=== PATIENT | female | born 1960 | race Caucasian/White ===

== ENCOUNTER 2020-12-22 15:14 | Observation (INO) ==
[2020-12-22 15:40] LABS: Basophils % 0.4 % (0.0-0.8); Eosinophils # 0.1 10*3/uL (0.0-0.87); Eosinophils % 1.4 % (0.00-10.9); Hematocrit 42.4 VOL% (35.7-47.0); Hemoglobin 13.8 GM/DL (12.0-16.0); Immature Granulocytes % 0.2 %; Immature Granulocytes Absolute 0.02 #; Lymphocytes # 3.8 10*3/uL (1.4-4.0); Lymphocytes % 36.7 % (21.3-54.2); Mean Corpuscular HGB Conc 32.5 GM/DL (32-36); Mean Corpuscular Volume 92.8 FL (87-102); Mean Platelet Volume 9.1 FL (9.6-12.0); Monocytes % 7.7 % (1.7-12.7); Neutrophils % 53.6 % (38.7-73.9); Platelet Count 318 T/CUMM (130-400); Red Blood Count 4.57 MC/CUMM (3.8-5.5); Red Cell Distribution Width 12.6 % (9.3-17.3); White Blood Count 10.2 T/CUMM (4-12)
[2020-12-22 16:03] LABS: Albumin 3.2 G/DL (3.4-5.0); Bilirubin,Total 0.4 MG/DL (0.2-1.0); Calcium 9.3 MG/DL (8.5-10.1); Osmolality,Calculated 272.2 MOS/KG (273-304); Potassium 4.2 MMOL/L (3.5-5.1); Total Protein 6.6 G/DL (6.4-8.2)
[2020-12-22] MEDS ORDERED: DEXTROSE 50% 25 GM/50 ML VIAL IV PRN (17:12)
[2020-12-22] MEDS ORDERED: hydrALAZINE 20 MG/1 ML VIAL IV PRN (17:12)
[2020-12-22] MEDS ORDERED: ONDANSETRON 4 MG/2 ML VIAL IV PRN (17:12)
[2020-12-22] MEDS ORDERED: GLUCAGON 1 MG VIAL IM PRN (17:12)
[2020-12-22] MEDS ORDERED: MORPHINE 4 MG/1 ML VIAL IV PRN (17:12)
[2020-12-22] MEDS ORDERED: ACETAMINOPHEN 325 MG TABLET PO PRN (17:12)
[2020-12-22] MEDS ORDERED: ENOXAPARIN 40 MG/0.4 ML SYRINGE SUBCUT SCH (17:30)
[2020-12-22] MEDS: ASPIRIN CHEW 81 MG TABLET PO SCH (17:33)
[2020-12-22 18:07] VITALS: BP 135/70
[2020-12-22] MEDS: SODIUM CHLORIDE 0.9% 1,000 ML IV SCH (18:30)
[2020-12-22] MEDS ORDERED: PHENAZOPYRIDINE 95 MG TABLET PO PRN (20:09)
[2020-12-22] MEDS: INSULIN LISPRO 100 UNIT/ML SUBCUT SCH (20:15)
[2020-12-22] MEDS ORDERED: LACTULOSE 20 GM/30 ML UDCUP PO PRN (20:15)
[2020-12-22] MEDS: DOCUSATE SODIUM 100 MG CAPSULE PO SCH (20:18)
[2020-12-22] MEDS: levETIRAcetam 500 MG TABLET PO SCH (20:18)
[2020-12-22] MEDS ORDERED: ATORVASTATIN 40 MG TABLET PO SCH (21:00)
[2020-12-23 03:28] LABS: Bilirubin,Urine Negative (Negative); Blood, Urine Small mg/dL (Negative); Glucose,Urine (UA) 150 mg/dL (Negative); Hyaline Casts,Urine 1 /LPF (0-3); Ketones,Urine Negative (Negative); Mucus,Urine Occasional /LPF (Occasional); Nitrite,Urine Positive (Negative); Protein,Urine Negative; RBC,Urine 60 /HPF (0-4); Squamous Epithelial Cell,Urine Occasional /HPF (0-10); Urine Appearance CLEAR (Clear); Urine Color Amber (Yellow); Urine Specific Gravity 1.008 (1.001-1.035)
[2020-12-23 04:39] LABS: Basophils # 0.1 10*3/uL (0.0-0.2); Eosinophils # 0.2 10*3/uL (0.0-0.87); Eosinophils % 2.5 % (0.00-10.9); Hematocrit 41.5 VOL% (35.7-47.0); Hemoglobin 13.3 GM/DL (12.0-16.0); Immature Granulocytes % 0.1 %; Immature Granulocytes Absolute 0.01 #; Lymphocytes # 2.9 10*3/uL (1.4-4.0); Lymphocytes % 41.5 % (21.3-54.2); Mean Corpuscular Volume 94.1 FL (87-102); Mean Platelet Volume 9.2 FL (9.6-12.0); Monocytes % 8.7 % (1.7-12.7); Neutrophils % 46.2 % (38.7-73.9); Red Blood Count 4.41 MC/CUMM (3.8-5.5); Red Cell Distribution Width 12.5 % (9.3-17.3)
[2020-12-23 04:54] LABS: Platelet Count 249 T/CUMM (130-400); White Blood Count 6.9 T/CUMM (4-12)
[2020-12-23 05:07] LABS: Calcium 8.7 MG/DL (8.5-10.1); Osmolality,Calculated 276.7 MOS/KG (273-304); Potassium 3.9 MMOL/L (3.5-5.1); Risk Ratio 4.14; VLDL Cholesterol 39.6 MG/DL
[2020-12-23] MEDS: ALBUTEROL/IPRATROPIUM 3 ML NEB RESP TX SCH ×2 (07:07→13:41)
[2020-12-23] MEDS ORDERED: MAGNESIUM SULF RIDER 4 GM/100 ML PREMIX IV PRN ×2 (07:24→07:35)
[2020-12-23] MEDS ORDERED: MAGNESIUM SULF RIDER 2 GM/50 ML PREMIX IV PRN ×2 (07:24→07:35)
[2020-12-23] MEDS: INSULIN LISPRO 100 UNIT/ML SUBCUT SCH ×2 (07:43→13:30)
[2020-12-23] MEDS: SODIUM CHLORIDE 0.9% 1,000 ML IV SCH (08:23)
[2020-12-23] MEDS ORDERED: NICOTINE 21 MG/24 HR PATCH TRANSDERM SCH (09:00)
[2020-12-23] MEDS ORDERED: EZETIMIBE 10 MG TABLET PO SCH (09:00)
[2020-12-23] MEDS ORDERED: VENLAFAXINE XR 75 MG CAPSULE PO SCH (09:00)
[2020-12-23] MEDS ORDERED: CLOPIDOGREL 75 MG TABLET PO SCH (09:00)
[2020-12-23] MEDS ORDERED: PANTOPRAZOLE 40 MG TABLET PO SCH (09:00)
[2020-12-23] MEDS ORDERED: NEBIVOLOL 5 MG TABLET PO SCH (09:00)
[2020-12-23] MEDS ORDERED: ARIPiprazole 2 MG TABLET PO SCH (09:00)
[2020-12-23] MEDS: ASPIRIN CHEW 81 MG TABLET PO SCH (09:23)
[2020-12-23] MEDS: levETIRAcetam 500 MG TABLET PO SCH (09:23)
[2020-12-23] MEDS: DOCUSATE SODIUM 100 MG CAPSULE PO SCH (09:23)
[2020-12-23] MEDS ORDERED: LEVOFLOXACIN 500 MG TABLET PO SCH (11:30)
== END 2020-12-23 14:30 | disposition home health service (06) ==
LOC: EDBD → EDUNIT# → N.ED 15:14 → N.EDINP 15:14 → SUATTDRO 17:12 → N.CC 18:24
PROVIDERS: ADMIT Internal Medicine; ATTEND Family Medicine

== ENCOUNTER 2021-01-14 16:56 | Inpatient (IN) ==
[2021-01-14 17:59] LABS: Basophils % 0.5 % (0.0-0.8); Eosinophils # 0.1 10*3/uL (0.0-0.87); Eosinophils % 1.6 % (0.00-10.9); Hematocrit 38.6 VOL% (35.7-47.0); Hemoglobin 12.7 GM/DL (12.0-16.0); Immature Granulocytes % 0.4 %; Immature Granulocytes Absolute 0.03 #; Lymphocytes # 2.7 10*3/uL (1.4-4.0); Lymphocytes % 35.4 % (21.3-54.2); Mean Corpuscular HGB Conc 32.9 GM/DL (32-36); Mean Corpuscular Volume 94.1 FL (87-102); Mean Platelet Volume 8.9 FL (9.6-12.0); Monocytes % 8.8 % (1.7-12.7); Neutrophils % 53.3 % (38.7-73.9); Platelet Count 261 T/CUMM (130-400); Red Cell Distribution Width 12.8 % (9.3-17.3); White Blood Count 7.7 T/CUMM (4-12)
[2021-01-14 18:15] LABS: Albumin 3.4 G/DL (3.4-5.0); Bilirubin,Total 0.4 MG/DL (0.20-1.00); Calcium 9.4 MG/DL (8.5-10.1); Potassium 3.5 MMOL/L (3.5-5.1); Total Protein 6.7 G/DL (6.4-8.2)
[2021-01-14 18:29] LABS: Bilirubin,Urine Negative (Negative); Blood, Urine Small mg/dL (Negative); Glucose,Urine (UA) >=500 mg/dL (Negative); Ketones,Urine Negative (Negative); Mucus,Urine Many /LPF (Occasional); Nitrite,Urine Negative (Negative); Protein,Urine Negative; RBC,Urine 122 /HPF (0-4); Urine Appearance CLOUDY (Clear); Urine Color Yellow (Yellow); Urine Specific Gravity 1.016 (1.001-1.035); Urine Urobilinogen < 2.0 EU/DL (0.2-1.0)
[2021-01-14] MEDS ORDERED: MEROPENEM 500 MG in SODIUM CHLORIDE 0.9% 100 ML IV ONE (19:23)
[2021-01-14] MEDS ORDERED: ONDANSETRON 4 MG/2 ML VIAL IV PRN (20:31)
[2021-01-14] MEDS ORDERED: GLUCAGON 1 MG VIAL IM PRN ×2 (20:31)
[2021-01-14] MEDS ORDERED: DEXTROSE 50% 25 GM/50 ML VIAL IV PRN ×2 (20:31)
[2021-01-14] MEDS ORDERED: ACETAMINOPHEN 325 MG TABLET PO PRN (20:31)
[2021-01-14 20:41] LABS: Barbiturates Screen,Urine Negative (Negative); Benzodiazepines Screen,Urine Negative (Negative); Cannabinoid Screen,Urine Negative (Negative); Opiate Screen,Urine Negative (Negative); Phencyclidine Screen,Urine Negative (Negative)
[2021-01-14] MEDS ORDERED: LEVOFLOXACIN INJ 750 MG/150 ML PREMIX IV SCH (21:00)
[2021-01-14] MEDS ORDERED: BENZONATATE 100 MG CAPSULE PO PRN (21:14)
[2021-01-14] MEDS ORDERED: PHENAZOPYRIDINE 95 MG TABLET PO PRN (21:14)
[2021-01-14] MEDS: INSULIN LISPRO 100 UNIT/ML SUBCUT SCH (22:06)
[2021-01-14] MEDS: levETIRAcetam 500 MG TABLET PO SCH (22:07)
[2021-01-14] MEDS: ENOXAPARIN 40 MG/0.4 ML SYRINGE SUBCUT SCH (22:07)
[2021-01-15] MEDS: LACTATED RINGERS 1,000 ML IV SCH ×2 (00:25→09:16)
[2021-01-15] MEDS: ALBUTEROL/IPRATROPIUM 3 ML NEB RESP TX SCH ×4 (00:54→20:35)
[2021-01-15 05:45] LABS: Basophils % 0.3 % (0.0-0.8); Eosinophils # 0.1 10*3/uL (0.0-0.87); Eosinophils % 0.7 % (0.00-10.9); Hematocrit 36.3 VOL% (35.7-47.0); Hemoglobin 11.8 GM/DL (12.0-16.0); Immature Granulocytes % 0.2 %; Immature Granulocytes Absolute 0.02 #; Lymphocytes # 1.7 10*3/uL (1.4-4.0); Mean Corpuscular HGB Conc 32.5 GM/DL (32-36); Mean Corpuscular Volume 95.3 FL (87-102); Mean Platelet Volume 9.4 FL (9.6-12.0); Monocytes % 7.6 % (1.7-12.7); Neutrophils % 71.2 % (38.7-73.9); Platelet Count 243 T/CUMM (130-400); Red Blood Count 3.81 MC/CUMM (3.8-5.5); Red Cell Distribution Width 12.7 % (9.3-17.3); White Blood Count 8.7 T/CUMM (4-12)
[2021-01-15 06:09] LABS: Calcium 9.4 MG/DL (8.5-10.1); Osmolality,Calculated 280.5 MOS/KG (273-304); Potassium 3.4 MMOL/L (3.5-5.1); Risk Ratio 2.84
[2021-01-15] MEDS: INSULIN LISPRO 100 UNIT/ML SUBCUT SCH ×4 (08:00→21:24)
[2021-01-15] MEDS: ATORVASTATIN 40 MG TABLET PO SCH (09:03)
[2021-01-15] MEDS: levETIRAcetam 500 MG TABLET PO SCH ×2 (09:03→21:23)
[2021-01-15] MEDS: ASPIRIN CHEW 81 MG TABLET PO SCH (09:03)
[2021-01-15] MEDS: PANTOPRAZOLE 40 MG TABLET PO SCH (09:03)
[2021-01-15] MEDS: EZETIMIBE 10 MG TABLET PO SCH (09:03)
[2021-01-15] MEDS: VENLAFAXINE XR 75 MG CAPSULE PO SCH (09:03)
[2021-01-15] MEDS: NEBIVOLOL 5 MG TABLET PO SCH (09:04)
[2021-01-15] MEDS: cefTRIAXone 1,000 MG in SODIUM CHLORIDE 0.9% 100 ML IV SCH (13:11)
[2021-01-15] MEDS: ARIPiprazole 2 MG TABLET PO SCH (13:15)
[2021-01-15] MEDS: BACLOFEN 20 MG TABLET PO SCH (21:23)
[2021-01-15] MEDS: ENOXAPARIN 40 MG/0.4 ML SYRINGE SUBCUT SCH (21:24)
[2021-01-16] MEDS: LACTATED RINGERS 1,000 ML IV SCH ×2 (00:21→18:47)
[2021-01-16] MEDS: ALBUTEROL/IPRATROPIUM 3 ML NEB RESP TX SCH ×4 (00:22→19:35)
[2021-01-16 05:43] LABS: Basophils % 0.3 % (0.0-0.8); Eosinophils # 0.1 10*3/uL (0.0-0.87); Eosinophils % 1.8 % (0.00-10.9); Hematocrit 32.3 VOL% (35.7-47.0); Hemoglobin 10.9 GM/DL (12.0-16.0); Immature Granulocytes % 0.3 %; Immature Granulocytes Absolute 0.02 #; Mean Corpuscular HGB Conc 33.7 GM/DL (32-36); Mean Corpuscular Volume 94.7 FL (87-102); Mean Platelet Volume 8.9 FL (9.6-12.0); Monocytes % 6.3 % (1.7-12.7); Neutrophils % 65.3 % (38.7-73.9); Platelet Count 192 T/CUMM (130-400); Red Blood Count 3.41 MC/CUMM (3.8-5.5); Red Cell Distribution Width 12.9 % (9.3-17.3); White Blood Count 7.6 T/CUMM (4-12)
[2021-01-16 06:11] LABS: Calcium 8.5 MG/DL (8.5-10.1); Osmolality,Calculated 283.1 MOS/KG (273-304); Potassium 3.3 MMOL/L (3.5-5.1); Thyroid Stimulating Hormone 1.36 uIU/ml (0.358-3.74)
[2021-01-16] MEDS: INSULIN LISPRO 100 UNIT/ML SUBCUT SCH ×4 (07:06→21:05)
[2021-01-16] MEDS ORDERED: CLOPIDOGREL 75 MG TABLET PO SCH (09:00)
[2021-01-16] MEDS: VENLAFAXINE XR 75 MG CAPSULE PO SCH (09:30)
[2021-01-16] MEDS: levETIRAcetam 500 MG TABLET PO SCH ×2 (09:31→21:05)
[2021-01-16] MEDS: ARIPiprazole 2 MG TABLET PO SCH (09:31)
[2021-01-16] MEDS: POTASSIUM CHLORIDE 20 MEQ TABLET PO PRN ×3 (09:31→14:16)
[2021-01-16] MEDS: PANTOPRAZOLE 40 MG TABLET PO SCH (09:31)
[2021-01-16] MEDS: ATORVASTATIN 40 MG TABLET PO SCH (09:31)
[2021-01-16] MEDS: EZETIMIBE 10 MG TABLET PO SCH (09:31)
[2021-01-16] MEDS: ISOSORBIDE MONONITRATE 60 MG TABLET PO SCH (09:33)
[2021-01-16] MEDS: ASPIRIN CHEW 81 MG TABLET PO SCH (09:33)
[2021-01-16] MEDS: BACLOFEN 20 MG TABLET PO SCH ×3 (09:34→21:05)
[2021-01-16] MEDS: NEBIVOLOL 5 MG TABLET PO SCH (09:36)
[2021-01-16] MEDS: cefTRIAXone 1,000 MG in SODIUM CHLORIDE 0.9% 100 ML IV SCH (09:43)
[2021-01-16] MEDS: INSULIN GLARGINE 100 UNIT/ML SUBCUT SCH (09:46)
[2021-01-16] MEDS: MAGNESIUM SULF RIDER 2 GM/50 ML PREMIX IV PRN ×2 (10:31→14:12)
[2021-01-16] MEDS ORDERED: TUBERCULIN SKIN TEST 0.1 ML SYRINGE INTRADERM ONE (13:00)
[2021-01-16] MEDS: APIXABAN 5 MG TABLET PO SCH (21:05)
[2021-01-17] MEDS: ALBUTEROL/IPRATROPIUM 3 ML NEB RESP TX SCH ×4 (01:40→19:20)
[2021-01-17 05:16] LABS: Basophils % 0.2 % (0.0-0.8); Eosinophils # 0.3 10*3/uL (0.0-0.87); Eosinophils % 3.1 % (0.00-10.9); Hematocrit 32.8 VOL% (35.7-47.0); Hemoglobin 10.7 GM/DL (12.0-16.0); Immature Granulocytes % 0.4 %; Immature Granulocytes Absolute 0.03 #; Lymphocytes # 2.2 10*3/uL (1.4-4.0); Lymphocytes % 26.8 % (21.3-54.2); Mean Corpuscular HGB Conc 32.6 GM/DL (32-36); Mean Corpuscular Volume 96.2 FL (87-102); Mean Platelet Volume 9.3 FL (9.6-12.0); Monocytes % 6.4 % (1.7-12.7); Neutrophils % 63.1 % (38.7-73.9); Platelet Count 212 T/CUMM (130-400); Red Blood Count 3.41 MC/CUMM (3.8-5.5); Red Cell Distribution Width 12.9 % (9.3-17.3)
[2021-01-17 05:44] LABS: Calcium 8.6 MG/DL (8.5-10.1); Osmolality,Calculated 281.1 MOS/KG (273-304); Potassium 3.9 MMOL/L (3.5-5.1)
[2021-01-17] MEDS: INSULIN LISPRO 100 UNIT/ML SUBCUT SCH ×4 (08:17→20:57)
[2021-01-17] MEDS ORDERED: MAGNESIUM HYDROXIDE SUSP 30 ML UDCUP PO ONE (08:28)
[2021-01-17] MEDS ORDERED: MAGNESIUM HYDROXIDE SUSP 30 ML UDCUP PO PRN (08:28)
[2021-01-17] MEDS: LACTATED RINGERS 1,000 ML IV SCH ×2 (09:42→22:16)
[2021-01-17] MEDS: EZETIMIBE 10 MG TABLET PO SCH (09:44)
[2021-01-17] MEDS: ASPIRIN CHEW 81 MG TABLET PO SCH (09:44)
[2021-01-17] MEDS: BACLOFEN 20 MG TABLET PO SCH ×3 (09:44→20:57)
[2021-01-17] MEDS: VENLAFAXINE XR 75 MG CAPSULE PO SCH (09:44)
[2021-01-17] MEDS: ARIPiprazole 2 MG TABLET PO SCH (09:44)
[2021-01-17] MEDS: ISOSORBIDE MONONITRATE 60 MG TABLET PO SCH (09:45)
[2021-01-17] MEDS: INSULIN GLARGINE 100 UNIT/ML SUBCUT SCH (09:45)
[2021-01-17] MEDS: NEBIVOLOL 5 MG TABLET PO SCH (09:45)
[2021-01-17] MEDS: APIXABAN 5 MG TABLET PO SCH ×2 (09:45→20:57)
[2021-01-17] MEDS: PANTOPRAZOLE 40 MG TABLET PO SCH (09:45)
[2021-01-17] MEDS: ATORVASTATIN 40 MG TABLET PO SCH (09:46)
[2021-01-17] MEDS: cefTRIAXone 1,000 MG in SODIUM CHLORIDE 0.9% 100 ML IV SCH (09:46)
[2021-01-17] MEDS: levETIRAcetam 500 MG TABLET PO SCH ×2 (09:46→20:57)
[2021-01-18] MEDS: ALBUTEROL/IPRATROPIUM 3 ML NEB RESP TX SCH ×4 (01:20→19:50)
[2021-01-18 05:02] LABS: Basophils % 0.3 % (0.0-0.8); Eosinophils # 0.2 10*3/uL (0.0-0.87); Hematocrit 31.3 VOL% (35.7-47.0); Hemoglobin 10.4 GM/DL (12.0-16.0); Immature Granulocytes % 0.3 %; Immature Granulocytes Absolute 0.02 #; Lymphocytes # 1.9 10*3/uL (1.4-4.0); Lymphocytes % 25.3 % (21.3-54.2); Mean Corpuscular HGB Conc 33.2 GM/DL (32-36); Mean Corpuscular Volume 95.7 FL (87-102); Mean Platelet Volume 9.3 FL (9.6-12.0); Monocytes % 6.7 % (1.7-12.7); Neutrophils % 64.4 % (38.7-73.9); Platelet Count 202 T/CUMM (130-400); Red Blood Count 3.27 MC/CUMM (3.8-5.5); Red Cell Distribution Width 12.8 % (9.3-17.3); White Blood Count 7.6 T/CUMM (4-12)
[2021-01-18 05:30] LABS: Calcium 8.6 MG/DL (8.5-10.1); Osmolality,Calculated 279.3 MOS/KG (273-304); Potassium 3.8 MMOL/L (3.5-5.1)
[2021-01-18] MEDS: ARIPiprazole 2 MG TABLET PO SCH (08:49)
[2021-01-18] MEDS: APIXABAN 5 MG TABLET PO SCH ×2 (08:50→20:23)
[2021-01-18] MEDS: NEBIVOLOL 5 MG TABLET PO SCH (08:50)
[2021-01-18] MEDS: PANTOPRAZOLE 40 MG TABLET PO SCH (08:50)
[2021-01-18] MEDS: ATORVASTATIN 40 MG TABLET PO SCH (08:50)
[2021-01-18] MEDS: levETIRAcetam 500 MG TABLET PO SCH ×2 (08:50→20:23)
[2021-01-18] MEDS: VENLAFAXINE XR 75 MG CAPSULE PO SCH (08:50)
[2021-01-18] MEDS: ASPIRIN CHEW 81 MG TABLET PO SCH (08:50)
[2021-01-18] MEDS: EZETIMIBE 10 MG TABLET PO SCH (08:50)
[2021-01-18] MEDS: ISOSORBIDE MONONITRATE 60 MG TABLET PO SCH (08:50)
[2021-01-18] MEDS: BACLOFEN 20 MG TABLET PO SCH ×3 (08:50→20:23)
[2021-01-18] MEDS: cefTRIAXone 1,000 MG in SODIUM CHLORIDE 0.9% 100 ML IV SCH (08:51)
[2021-01-18] MEDS: INSULIN GLARGINE 100 UNIT/ML SUBCUT SCH (08:51)
[2021-01-18] MEDS: INSULIN LISPRO 100 UNIT/ML SUBCUT SCH ×4 (09:32→20:24)
[2021-01-18] MEDS: LACTATED RINGERS 1,000 ML IV SCH ×3 (10:09→23:46)
[2021-01-18] MEDS: MAGNESIUM SULF RIDER 2 GM/50 ML PREMIX IV PRN (10:10)
[2021-01-19] MEDS: ALBUTEROL/IPRATROPIUM 3 ML NEB RESP TX SCH ×3 (01:04→13:48)
[2021-01-19 06:10] LABS: Albumin 2.6 G/DL (3.4-5.0); Bilirubin,Total 0.5 MG/DL (0.20-1.00); Calcium 8.7 MG/DL (8.5-10.1); Osmolality,Calculated 280.1 MOS/KG (273-304); Potassium 3.6 MMOL/L (3.5-5.1); Total Protein 5.6 G/DL (6.4-8.2)
[2021-01-19 09:15] LABS: Basophils % 0.4 % (0.0-0.8); Eosinophils # 0.1 10*3/uL (0.0-0.87); Eosinophils % 2.1 % (0.00-10.9); Hemoglobin 10.6 GM/DL (12.0-16.0); Immature Granulocytes % 0.2 %; Immature Granulocytes Absolute 0.01 #; Lymphocytes # 1.4 10*3/uL (1.4-4.0); Lymphocytes % 24.3 % (21.3-54.2); Mean Corpuscular HGB Conc 32.1 GM/DL (32-36); Mean Corpuscular Volume 96.8 FL (87-102); Mean Platelet Volume 9.3 FL (9.6-12.0); Platelet Count 219 T/CUMM (130-400); Red Blood Count 3.41 MC/CUMM (3.8-5.5); White Blood Count 5.7 T/CUMM (4-12)
[2021-01-19] MEDS: INSULIN LISPRO 100 UNIT/ML SUBCUT SCH ×2 (09:18→14:15)
[2021-01-19] MEDS: PANTOPRAZOLE 40 MG TABLET PO SCH (11:24)
[2021-01-19] MEDS: levETIRAcetam 500 MG TABLET PO SCH (11:24)
[2021-01-19] MEDS: BACLOFEN 20 MG TABLET PO SCH ×2 (11:25→16:12)
[2021-01-19] MEDS: ARIPiprazole 2 MG TABLET PO SCH (11:25)
[2021-01-19] MEDS: ISOSORBIDE MONONITRATE 60 MG TABLET PO SCH (11:25)
[2021-01-19] MEDS: ASPIRIN CHEW 81 MG TABLET PO SCH (11:25)
[2021-01-19] MEDS: ATORVASTATIN 40 MG TABLET PO SCH (11:25)
[2021-01-19] MEDS: NEBIVOLOL 5 MG TABLET PO SCH (11:25)
[2021-01-19] MEDS: cefTRIAXone 1,000 MG in SODIUM CHLORIDE 0.9% 100 ML IV SCH (11:26)
[2021-01-19] MEDS: APIXABAN 5 MG TABLET PO SCH (11:26)
[2021-01-19] MEDS: EZETIMIBE 10 MG TABLET PO SCH (11:26)
[2021-01-19] MEDS: INSULIN GLARGINE 100 UNIT/ML SUBCUT SCH (11:27)
[2021-01-19] MEDS: VENLAFAXINE XR 75 MG CAPSULE PO SCH (13:23)
[2021-01-19 16:09] VITALS: BP 122/45
[2021-01-19] MEDS: LACTATED RINGERS 1,000 ML IV SCH (16:13)
== END 2021-01-19 16:11 | DRG 64 ==
LOC: EDUNIT# → EDBD → N.ED 16:56 → N.EDINP 20:31 → SUATTDRO 20:31 → N.EDINP 01-15 02:25 → N.5E 01-15 03:04
PROVIDERS: ADMIT Internal Medicine; ATTEND Internal Medicine